=== PATIENT | female | born 1975 | race Hispanic/Latino ===

== ENCOUNTER → 2017-11-24 | Outpatient (CLI) | payer OTHER ==
--- NOTE | 2017-11-24 12:02 | Diagnostic Imaging Report ---
PROCEDURE: L-SPINE COMPLETE COMPARISON: None. INDICATIONS: BACK PAIN FINDINGS: 5 [id number] lumbar vertebral bodies. The lumbar spine is in anatomic alignment without evidence of fracture, spondylolisthesis, or spondylolysis. Vertebral body heights and disc spaces are maintained. The paraspinal soft tissues are normal. CONCLUSION: Normal lumbar spine. Dictated by: Baljinder Law M.D. on 11/24/2017 at 12:12 Electronically approved by: Baljinder Law M.D. on 11/24/2017 at 12:12
--- NOTE | 2017-11-24 12:04 | Diagnostic Imaging Report ---
PROCEDURE:THORACIC SPINE 2VW COMPARISON:None. INDICATIONS:BACK PAIN FINDINGS: No compression deformities identified. Normal alignment of the spine. Disc spaces are preserved. Visualized portions of the lung are clear. Soft tissues are unremarkable. CONCLUSION: No acute osseous abnormalities. Dictated by: Baljinder Law M.D. on 11/24/2017 at 12:14 Electronically approved by: Baljinder Law M.D. on 11/24/2017 at 12:14
== END ==
LOC: RAD 11:04
PROVIDERS: ATTEND Family Medicine
DX: M54.6 Pain in thoracic spine (principal); M54.5 Low back pain
CPT/HCPCS: 72070; 72110